=== PATIENT | female | born 1985 | race Two or more races ===

== ENCOUNTER 2024-06-27 13:14 | Emergency (ER) | payer OTHER ==
[~2024-06-27] VITALS: Ht 162.6 cm; Wt 74.8 kg
[2024-06-27] MEDS ORDERED: METFORMIN HCL1000 MG (13:17)
[2024-06-27] MEDS ORDERED: KETOROLAC TROMETHAMINE 60 MG VIAL IM ONE ×2 (14:15→15:05)
[2024-06-27] MEDS ORDERED: CEFTRIAXONE SODIUM 2,000 MG VIAL IM ONE (14:15)
[2024-06-27] MEDS ORDERED: CEFTRIAXONE SODIUM 2,000 MG VIAL ONE (15:05)
[2024-06-27 15:45] LABS: HEMATOCRIT 35.9 % (36.0-45.00); HEMOGLOBIN 12.3 g/dL (12.0-15.00); MEAN CELL VOLUME 89.8 fL (80.00-100.00); MEAN CORPUSCULAR HEMOGLOBIN 30.7 pg (27.00-32.0); MEAN CORPUSCULAR HGB CONC 34.2 g/dl (32.0-36.0); PLATELET COUNT 461 K/uL (150-450)
== END 2024-06-27 16:04 | disposition home or self-care (01) ==
LOC: ER 13:16
PROVIDERS: General Practice
DX: J32.9 Chronic sinusitis, unspecified (principal); J00 Acute nasopharyngitis [common cold]; I10 Essential (primary) hypertension; E11.9 Type 2 diabetes mellitus without complications; Z79.84 Long term (current) use of oral hypoglycemic drugs
CPT/HCPCS: 36415; 96372; 99282; J0696; J1885